=== PATIENT | male | born 1990 | race Caucasian/White ===

== ENCOUNTER 2024-12-11 18:01 | Emergency (ER) | payer MEDICAID, SELFPAY ==
[2024-12-11 18:02] VITALS: BMI 29.7
[2024-12-11 18:22] VITALS: BP 150/91; PULSE 89; RESP 18; TEMP 37.3; O2SAT 95
--- NOTE | 2024-12-11 18:33 | PD.EDBACK ---
ED Back Injury Pain RME/HPI General Chief Complaint: Back Pain/Injury Stated Complaint: BACK PAIN SINCE YESTERDAY Time Seen by Provider: 12/11/24 18:32 Source: patient, RN notes reviewed and old records reviewed Arrival date/time: 12/11/24 18:01 Mode of arrival: ambulatory Limitations: no limitations RME / HPI RME / HPI Narrative: 34yom presents to ED for right lower back pain that initiated yesterday. Denies preceding injury/trauma or fall. Denies heavy lifting. Patient reports increased back pain with ROM and ambulation. No fever, nausea/vomiting, abdominal pain, flank pain, dysuria/hematuria, LE weakness, numbness/tingling or bowel/bladder incontinence reported. Patient took Tylenol yesterday with mild relief, no medications or treatments today. Related Data Previous Rx's ?Medication ?Instructions ?Recorded ibuprofen 600 mg tablet 600 mg PO Q6H PRN pain #30 tabs 12/11/24 lidocaine 5 % topical patch 1 patch topical QDAY PRN pain #15 12/11/24 ea methocarbamol 500 mg tablet 1,000 mg (2 x 500 mg) PO Q8H PRN 12/11/24 pain #30 tabs Allergies Allergy/AdvReac Type Severity Reaction Status Date / Time No Known Allergies Allergy Verified 12/11/24 18:04 Review of Systems Review of Systems Systems Reviewed: All systems reviewed, normal except as documented Constitutional Constitutional: Denies chills and Denies fever(s) Gastrointestinal Gastrointestinal: Denies abdominal pain, Denies fecal incontinence, Denies nausea and Denies vomiting Genitourinary Genitourinary: Denies flank pain, Denies hematuria and Denies urinary incontinence Musculoskeletal Musculoskeletal: Reports back pain, Denies numbness and Denies tingling Neurologic Neurologic: Denies localized weakness, Denies numbness and Denies tingling Past Medical History Surgical History OTHER SURGICAL HX: Denies past surgical history Social History SMOKING STATUS: Never smoker SUBSTANCE USE: marijuana ALCOHOL: Current (Social) Past Medical History Comments PMH COMMENT: Denies past medical history ED Exam General Limitations: Present no limitations General appearance: Present alert and in no apparent distress Head Head exam: Present atraumatic and normocephalic Eye Eye exam: Present normal appearance, PERRL and EOMI ENT ENT exam: Present normal exam and mucous membranes moist Neck Neck exam: Present normal inspection and full ROM Chest Chest inspection: Present normal inspection and symmetric chest wall rise Respiratory Respiratory exam: Present normal lung sounds bilaterally; Absent respiratory distress Cardiovascular Cardiovascular exam: Present regular rate and normal rhythm Abdominal Exam Abdominal exam: Present soft; Absent distention or tenderness Extremities Exam Extremities exam: Present normal inspection and full ROM Back Exam Back exam: Present full ROM and paraspinal tenderness (Right lumbar); Absent CVA tenderness (R), CVA tenderness (L) or vertebral tenderness Neurological Exam Neurological exam: Present alert, oriented X3, CN II-XII intact, normal gait and other (No saddle anesthesia); Absent motor sensory deficit Psychiatric Psychiatric exam: Present normal affect and normal mood Skin Skin exam: Present warm, dry, intact and normal color Course Quality Measures none Orders Category Date Time Status CYCLObenzaPRINE [Flexeril] Med 12/11/24 18:32 Discontinued 10 mg PO X1 ONE Ketorolac Inj [Toradol Inj] Med 12/11/24 18:32 Discontinued 30 mg IM X1 ONE Lidocaine 5% Patch Med 12/11/24 18:32 Discontinued 1 patch TOP X1 ONE Vital Signs Vital signs: Vital Signs Temperature 99.2 F 12/11/24 18:22 Pulse Rate 89 12/11/24 18:22 Respiratory Rate 18 12/11/24 18:22 Blood Pressure 150/91 H 12/11/24 18:22 Pulse Oximetry (%) 95 12/11/24 18:22 Oxygen Delivery Method Room Air 12/11/24 18:22 Back Pain / Injury MDM Narrative MDM Narrative:: 34yom presents to ED for right lower back pain that initiated yesterday. Denies preceding injury/trauma or fall. Denies heavy lifting. Patient reports increased back pain with ROM and ambulation. No fever, nausea/vomiting, abdominal pain, flank pain, dysuria/hematuria, LE weakness, numbness/tingling or bowel/bladder incontinence reported. Patient took Tylenol yesterday with mild relief, no medications or treatments today. Patient reassessed. Back pain mildly improved after medications administered in ED. Patient is well-appearing, neurologically intact, able to ambulate without difficulty. Encouraged rest, NSAID, muscle relaxer, ice/heat application prn. Stable for discharge, RTED precautions given. Patient data External records reviewed:: None (No prior visits) Clinical information provided by:: patient Social determinants that could affect healthcare access:: other (specify) (Poor access to healthcare) Patient has the following chronic illnesses:: None How is presenting disease/condition affected by chronic disease/condition?: no chronic disease Evaluation data The following diagnostics were reviewed and interpreted by me:: other (specify) (None) Lab and/or radiology exams considered but not ordered:: Lumbar x-rays: No midline tenderness. No preceding injury/trauma or fall Interpretation Summary: na Medications / Prescriptions Medications or Prescriptions considered but not ordered:: No antibiotics recommended at this time Medication administrations:: Medication Administration History Discontinued Medications Cyclobenzaprine HCl (Cyclobenzaprine 5 Mg Tablet) 10 mg PO X1 ONE Stop: 12/11/24 18:33 Last Admin: 12/11/24 20:05 Dose: 10 mg Documented By: Ketorolac Tromethamine (Ketorolac Inj 60 Mg/2 Ml Vial) 30 mg IM X1 ONE Stop: 12/11/24 18:33 Last Admin: 12/11/24 20:05 Dose: 30 mg Documented By: Lidocaine (Lidocaine 5% 1 Patch) 1 patch TOP X1 ONE Stop: 12/11/24 18:33 Last Admin: 12/11/24 20:07 Dose: 1 patch Documented By: Above medications administered in ED Consultations Consultation(s) initiated? (list below): No Diagnosis Differential diagnosis back pain/injury: lumbar radiculopathy, sciatica, strain of lumbar region, pyelonephritis and discitis Most likely diagnosis given after review of the tests above:: Acute low back pain Admission Indicated Admission indicated?: not indicated Admission Request Was there a request for admission?: No Disposition Plan Disposition Plan: Discharge Discharge Attestation Discharge Attestation: The patient and all family members were given an opportunity to ask questions and understood the discharge instructions. Discharge instructions specifically effects, indications for sooner follow up or return to the emergency department, and the expected course of current diagnosis. Patient condition: Stable Discharge Plan Plan Patient Disposition: HOME (Self Care) Patient condition on transfer: Stable Prescriptions/Referrals Prescriptions/Med Rec: New ibuprofen 600 mg tablet 600 mg PO Q6H PRN (Reason: pain) Qty: 30 0RF methocarbamol 500 mg tablet 1,000 mg PO Q8H PRN (Reason: pain) Qty: 30 0RF lidocaine 5 % adhesive patch,medicated 1 patch topical QDAY PRN (Reason: pain) Qty: 15 0RF Rx Instructions: leave on most painful area for up to 12 hrs Referrals: No Primary/Family,Physician [Primary Care Provider] - In 1 week Problem List Clinical Impression: Acute low back pain Patient/Caregiver Discharge Instructions Education Materials: ED Back Pain (Acute or Chronic) Print Language: [place] Stand Alone Forms: Liliana Award Info., Patient Portal Info Letter PA/SCREW DRIVER OPERATOR Supervising Physician PA/SCREW DRIVER OPERATOR Supervising Physician: Mariano
[2024-12-11] MEDS: KETOROLAC INJ 60 MG/2 ML VIAL 30 MG IM (20:05)
[2024-12-11] MEDS: CYCLObenzaPRINE 5 MG TABLET 10 MG PO (20:05)
[2024-12-11] MEDS: LIDOCAINE 5% 1 PATCH TOP (20:07)
== END 2024-12-11 21:48 | disposition home or self-care (01) ==
PROVIDERS: Emergency Provider Emergency Medicine
DX: M54.50 Low back pain, unspecified (principal)
CPT/HCPCS: 96372; 99283; J1885; J3490; A9270